=== PATIENT | male | born 1960 | race Caucasian/White ===

== ENCOUNTER 2022-06-21 13:23 | Emergency (ER) | payer OTHER | END 2022-06-21 16:55 | disposition home or self-care (01) | LOC: ER1 13:23 | DX: M54.2 Cervicalgia (principal); M54.6 Pain in thoracic spine; I10 Essential (primary) hypertension; F17.290 Nicotine dependence, other tobacco product, uncomplicated; R40.2410 Glasgow coma scale score 13-15, unspecified time; V59.9XXA Occupant (driver) (passenger) of pick-up truck or van injured in unspecified traffic accident, initial encounter; Y92.410 Unspecified street and highway as the place of occurrence of the external cause | CPT/HCPCS: 72125; 72128; 99283 ==

== ENCOUNTER → 2022-06-26 | Outpatient (CLI) | payer OTHER | LOC: KOH-I 15:51 | DX: M54.50 Low back pain, unspecified (principal); M51.36 Other intervertebral disc degeneration, lumbar region | CPT/HCPCS: 72100 ==